=== PATIENT | male | born 1975 | race Caucasian/White ===

== ENCOUNTER 2021-05-24 22:17 | Emergency (ER) | payer BC ==
[~2021-05-24] VITALS: Ht 172.7 cm; Wt 81.6 kg
[2021-05-25 00:36] VITALS: BP 124/72
== END 2021-05-25 00:39 | disposition home or self-care (01) ==
LOC: ER 22:17
DX: F10.129 Alcohol abuse with intoxication, unspecified (principal); R51.9 Headache, unspecified; R07.89 Other chest pain; V49.49XA Driver injured in collision with other motor vehicles in traffic accident, initial encounter; Y93.89 Activity, other specified; Y92.410 Unspecified street and highway as the place of occurrence of the external cause; Y99.8 Other external cause status
CPT/HCPCS: 70450; 71045